=== PATIENT | female | born 2000 | race Caucasian/White ===

== ENCOUNTER 2018-10-16 09:36 | Outpatient (CLI) | payer MEDICAID ==
--- NOTE | 2018-10-16 11:04 | Non Stress Test Report ---
Non Stress Test Datetime Report Generated by CPN: 10/16/2018 11:04 DEMOGRAPHIC Test Number: 1 EGA NST: 38.4 INDICATION Indication for Study: Ordered by Provider Indication for Study (NST) Other: decels in office VITAL SIGNS Temperature - NST: 98.2 Pulse - NST: 90 RESP - NST: 16 NBPSYS NST: 126 NBPDIA NST: 83 MONITORING Monitor Explained: Monitor Explained; Test Explained; Patient Verbalized Understanding Time on Monitor: 10/16/2018 10:00 NST INTERVENTIONS NST Interventions: PO Hydration Physician Notified NST: A Murdock CNM BABY A: [id number] BABY A Movement : Present FHR Baseline : 135 Accelerations : 15X15 Decelerations : None Variability : Moderate 6-25bpm NST Review: Meets Criteria for Reactive NST NST Review and Verified By : Rebekah Brothers RN NST Results: Reactive NST REPORT Report Trigger: Send Report
== END 2018-10-16 11:00 | disposition home or self-care (01) ==
LOC: LC 09:36
PROVIDERS: ATTEND Student in an Organized Health Care Education/Training Program
PROC: 4A1HXCZ Monitoring of Products of Conception, Cardiac Rate, External Approach (ICD-10-PCS; principal; 2018-10-16)
DX: O36.8330 Maternal care for abnormalities of the fetal heart rate or rhythm, third trimester, not applicable or unspecified (principal); Z3A.38 38 weeks gestation of pregnancy
CPT/HCPCS: 59025

== ENCOUNTER 2018-10-20 23:25 | Inpatient (IN) | payer MEDICAID ==
[2018-10-20 23:56] LABS: APPEARANCE,URINE CLOUDY; BILIRUBIN,URINE NEGATIVE (NEGATIVE); COLOR,URINE YELLOW; GLUCOSE, URINE NEGATIVE (NEGATIVE); KETONES,URINE NEGATIVE (NEGATIVE); LEUKOCYTE ESTERASE,URINE MODERATE (NEGATIVE); NITRITE,URINE NEGATIVE (NEGATIVE); PROTEIN,URINE 30 mg/dL (NEGATIVE); URINE SPECIFIC GRAVITY 1.021; UROBILINOGEN,URINE NEGATIVE mg/dL (<2.0)
[2018-10-21 00:56] LABS: ABSOLUTE LYMPHOCYTES (AUTO) 1.9 10^3/uL (0.5-4.7); ABSOLUTE MONOCYTES (AUTO) 0.7 10^3/uL (0.1-1.4); ABSOLUTE NEUT (AUTO) 8.7 10^3/uL (1.7-8.2); BASOPHILS % (AUTO) 0.3 % (0-2); EOSINOPHILS % (AUTO) 0.3 % (0-6); HEMATOCRIT 33.6 % (36.0-47.0); HEMOGLOBIN 10.9 g/dL (12.0-15.5); LYMPHOCYTES % (AUTO) 16.9 % (13-45); MEAN CORPUSCULAR HEMOGLOBIN 23.8 pg (27.0-33.4); MEAN CORPUSCULAR HGB CONC 32.4 g/dL (32.0-36.0); MEAN CORPUSCULAR VOLUME 74 fl (80-97); MONOCYTES % (AUTO) 5.8 % (3-13); PLATELET COUNT 209 10^3/uL (150-450); RED BLOOD COUNT 4.57 10^6/uL (3.72-5.28); SEGMENTED NEUTROPHILS % (AUTO) 76.7 % (42-78); TOTAL CELLS COUNTED % (AUTO) 100 %; WHITE BLOOD COUNT 11.3 10^3/uL (4.0-10.5)
[2018-10-21 01:06] LABS: URINE AMPHETAMINES SCREEN NEGATIVE; URINE BARBITURATES SCREEN NEGATIVE; URINE BENZODIAZEPINES SCREEN NEGATIVE; URINE COCAINE SCREEN NEGATIVE; URINE MARIJUANA (THC) SCREEN NEGATIVE; URINE METHADONE SCREEN NEGATIVE; URINE PHENCYCLIDINE SCREEN NEGATIVE
[2018-10-21 01:17] LABS: ALANINE AMINOTRANSFERASE 20 U/L (9-52); ALBUMIN 3.4 g/dL (3.5-5.0); ALKALINE PHOSPHATASE 204 U/L (38-126); ANION GAP 8 (5-19); ASPARTATE AMINO TRANSFERASE 21 U/L (14-36); BILIRUBIN,DIRECT 0.2 mg/dL (0.0-0.4); BILIRUBIN,TOTAL 0.2 mg/dL (0.2-1.3); BLOOD UREA NITROGEN 14 mg/dL (7-20); CALCIUM 9.3 mg/dL (8.4-10.2); CARBON DIOXIDE 23 mmol/L (22-30); CHLORIDE 107 mmol/L (98-107); GLUCOSE 85 mg/dL (75-110); POTASSIUM 4.8 mmol/L (3.6-5.0); SODIUM 137.8 mmol/L (137-145); TOTAL PROTEIN 6.3 g/dL (6.3-8.2); URIC ACID 5.1 mg/dL (2.5-6.2)
[2018-10-21 01:22] LABS: UR PRO/CREAT RATIO RESULT 0.1 mg/mg (0.0-0.2); URINE PROTEIN 15.1 mg/dL (<12)
--- NOTE | 2018-10-21 02:27 | Admission Physical ---
Datetime Report Generated by CPN: 10/21/2018 02:27 CURRENT ADMISSION Chief Complaint: Uterine Contractions Admit Impression : Active Labor Admit Plan: Admit to Unit; Initiate Labor Protocol ALLERGIES Medication Allergies: Yes Medication Allergies: No Known Allergies (10/16/2018) OBSTETRICAL HISTORY EDC: 10/26/2018 00:00 : 1 Para: 0 Livin Gestational Diabetes: No Rh Sensitization: No Incompetent Cervix: No GURINDER: No Infertility: No ART Treatment: No Uterine Anomaly: No IUGR: No Hx Previous C/S: No Macrosomia: No Hx Loss/Stillborn: No PIH: No Hx : No Placenta Previa/Abruption: No Depression/PP Depression: No PTL/PROM: No Post Hemorrhage: No Current Procedures: Ultrasound; NST SEE RECORDS Alcohol: No Marijuana : No Cocaine: No Other Illicit Drugs: No Cigarettes: Former Smoker. [id number] MEDICAL HISTORY Diabetes: No Blood Transfusion: No Pulmonary Disease (Asthma, TB): No Breast Disease: No Hypertension: No Independent Film Maker Surgery: No Heart Disease: No Hosp/Surgery: No Autoimmune Disorder: No Anesthetic Complications: No Kidney Disease: No Abnormal Pap Smear: No Neuro/Epilepsy: No Psychiatric Disorders: No Other Medical Diseases: No Hepatitis/Liver Disease: No Significant Family History: No Varicosities/Phlebitis: No Trauma/Violence : No Thyroid Dysfunction: No INFECTIOUS HISTORY Gonorrhea: No Genital Herpes: No Chlamydia: No Tuberculosis: No Syphilis: No Hepatitis: No HIV/AIDS Exposure: No Rash or Viral Illness: No HPV: No PHYSICAL EXAM General: Normal HEENT: Normal Neurologic: Normal Thyroid: Normal Heart: Normal Lungs: Normal Breast: Deferred Back: Normal Abdomen: Normal Genitourinary Exam: Normal Extremities: Normal DTRs: Normal Pelvic Type: Adequate Vital Signs: Reviewed VAGINAL EXAM Dilatation: 2 Effacement: 60 Station: -2 MEMBRANES Pooling: Negative Membranes: Intact FETUS A EGA: 39.2 Monitoring: External US FHR- Baseline: 120 Variability: Moderate 6-25bpm Decelerations: None FHR Category: Category I Presentation: Vertex Admit Comment: Will admit because of the high pressures PLANS FOR LABOR AND DELIVERY Labor and Delivery: None Pain Management: None Feeding Preference: Breast Benefit of Breast Feed Discussed: Yes Circumcision: Yes INFORMED CONSENT Signature: with User ID: [email or web address]
[2018-10-21] MEDS ORDERED: RINGERS SOLUTION,LACTATED 1,000 ML IV PRN (02:28)
[2018-10-21] MEDS ORDERED: LIDOCAINE 1% INJ-PF (10 MG/ML) 30 ML SDV ONE (04:44)
[2018-10-21] MEDS ORDERED: EPHEDRINE SULFATE INJ 50 MG/1 ML AMPULE ONE (04:44)
[2018-10-21] MEDS ORDERED: OXYTOCIN 10 UNIT/ML VIAL ONE (04:44)
[2018-10-21] MEDS ORDERED: FENTANYL/BUPIVACAINE/NS/PF 300 MCG/150 ML RTUINJ EPI ONE (04:44)
[2018-10-21] MEDS ORDERED: MISOPROSTOL 0.2 MG TABLET ONE (04:44)
[2018-10-21] MEDS ORDERED: OXYTOCIN/NORMAL SALINE 20 UNIT/1,000 ML RTUINJ ONE (04:44)
[2018-10-21] MEDS ORDERED: BUPIVACAINE HCL 0.25 % INJ/PF (2.5 MG/1 ML) 30 ML VIAL ONE (04:45)
[2018-10-21] MEDS ORDERED: OXYTOCIN/NORMAL SALINE 20 UNIT/1,000 ML RTUINJ IV PRN ×2 (09:21→19:01)
[2018-10-21] MEDS ORDERED: IBUPROFEN 800 MG TABLET ONE (15:02)
[2018-10-21] MEDS ORDERED: ACETAMINOPHEN WITH CODEINE #3 TABLET PO PRN ×2 (19:01)
[2018-10-21] MEDS ORDERED: DIPH/PERTUSS(ACELL)/TETANUS VAC/PF 0.5 ML SYR (>=10YO) IM PRN (19:01)
[2018-10-21] MEDS ORDERED: DIBUCAINE 1% OINTMENT 56 GM TP PRN (19:01)
[2018-10-21] MEDS ORDERED: ZOLPIDEM TARTRATE 5 MG TABLET PO PRN (19:01)
[2018-10-21] MEDS ORDERED: MEASLES,MUMPS&RUBELLA VACC/PF 0.5 ML VIAL SUBCUT PRN (19:01)
--- NOTE | 2018-10-21 19:01 | Delivery Summary ---
Del Sum A-C Datetime Report Generated by CPN: 10/21/2018 19:01 DELIVERY PERSONNEL DELIVERY PERSONNEL: [id number] Delivery Doctor:: Ruby Duff CNM Labor and Delivery Nurse:: Pita Kelley RN Labor and Delivery Nurse:: Rebekah Brothers RN Nursery Nurse:: Chau BOTELLO RN AFTER 10 MIN Oral Communication Instructor/ACOUSTICAL LOGGING ENGINEER: Chitra Limon, HYDROELECTRIC MECHANIC MATERNAL INFORMATION Delivery Anesthesia: Epidural Medications After Delivery: Pitocin Bolus-Please Comment; Pitocin Drip 20 Units/1000ml NSS Meds After Delivery Comment: Pitocin 20 units in 1 L NS bolusing per order Delivery QBL: 9 Maternal Complications: None Provider Comments: SVDVM over intact perineum, AYLIN, ant shoulder delivered with gentle traction, followed by post shoulder and body. Infant vigorous, to mothers abd. Cord clamped x2 after 2 min, cut per FOB. Placenta delivered via hayward intact. Rt and Lt labial lacerations repaired with chromic. Apgars 9, 9. Mother and stable upon leaving the room. LABOR SUMMARY EDC: 10/26/2018 00:00 No. Babies in Womb: 1 Attempted: No Labor Anesthesia: Epidural LABOR INFORMATION Reason for Induction: Not Applicable Onset of Labor: 10/21/2018 02:00 Complete Dilatation: 10/21/2018 11:53 Oxytocin: Augmentation Group B Beta Strep: negative Antibiotics # of Doses: 0 Steroids Given: None Reason Steroids Not Administered: Not Applicable MEMBRANES Membranes Rupture Method: Artificial Rupture of Membranes: 10/21/2018 08:24 Length of Rupture (hr): 5.03 Amniotic Fluid Color: Clear Amniotic Fluid Amount: Small Amniotic Fluid Odor: Normal STAGES OF LABOR Stage 1 hr: 9 Stage 1 min: 53 Stage 2 hr: 1 Stage 2 min: 33 Stage 3 hr: 0 Stage 3 min: 10 Total Time in Labor hr: 11 Total Time in Labor min: 36 VAGINAL DELIVERY Episiotomy: None Laceration Extension #1: First Degree Other Laceration: RT _ LT LABIAL Laceration Repair: Yes Laceration Repair Note: 2.0 chromic used for repair under epidural anesthesia Sponge Count Correct: N/A Sharps Count Correct: N/A BABY A INFORMATION Infant Delivery Date/Time: 10/21/2018 13:26 Method of Delivery: Vaginal Born in Route : No : N/A Forceps: N/A Vacuum Extraction: N/A Shoulder Dystocia : No PRESENTATION/POSITION BABY A Presentation: Cephalic Cephalic Presentation: Vertex Vertex Position: Right Occipital Anterior Breech Presentation: N/A PLACENTA INFORMATION BABY A Placenta Delivery Time : 10/21/2018 13:36 Placenta Method of Delivery: Spontaneous Placenta Status: Delivered SCORES BABY A Heart Rate 1 min: >100 bpm Resp Effort 1 min: Good Cry Reflex Irritability 1 min: Cough or Sneeze or Pulls Away Muscle Tone 1 min: Active Motion Color 1 min: Body Kathleen, Extremities Blue Resuscitation Effort 1 min: Tactile Stimulation SCORE 1 MIN: 9 Heart Rate 5 min: >100 bpm Resp Effort 5 min: Good Cry Reflex Irritability 5 min: Cough or Sneeze or Pulls Away Muscle Tone 5 min: Active Motion Color 5 min: Body Kathleen, Extremities Blue Resuscitation Effort 5 min: Tactile Stimulation SCORE 5 MIN: 9 INFANT INFORMATION BABY A Gestational Age at Delivery: 39.2 Gestational Status: Full Term- 39- 40.6 Weeks Infant Outcome : Liveborn Condition : Stable Sex: Male IDENTIFICATION BABY A Infant Verification Date/Time: 10/21/2018 13:38 ID Band Number: [id number] Mother's Name Verified: Yes Infant RN Verifying Infant: BL NATHALIALUND, RN Additional Verifying Personnel: F LIMON, ST WEIGHT/LENGTH BABY A Infant Birthweight (gm): 3802 Weight (lb): 8 Weight (oz): 6 Length (in): 20.00 Length (cm): 50.80 CORD INFORMATION BABY A No. Cord Vessels: 3 Nuchal Cord : N/A Cord Blood Taken: Yes-For Eval (Mom's Blood Type - or O+) Infant Suction: None ASSESSMENT BABY A Infant Complications: Multiple Variable Decels Physical Findings at Delivery: Within Normal Limits Infant Respirations: Grunting Skin to Skin: Yes Hand Expansion Envelope Maker/ALS Called : No Care By: Humberto SIMMONS RN Transferred To: Remains with Mother BABY B INFORMATION : N/A SIGNATURES Assignment: Maira Mercedes MD Signature: with User ID: [email or web address] : with User ID: [email or web address] : I was personally available for consultation and serving as supervising physician for the MLP.
[2018-10-21] MEDS: IBUPROFEN 800 MG TABLET PO SCH (21:13)
[2018-10-21] MEDS: FERROUS SULFATE 325 MG TABLET PO SCH (21:13)
[2018-10-21] MEDS: DOCUSATE SODIUM 100 MG CAPSULE PO SCH (21:13)
[2018-10-22] MEDS: IBUPROFEN 800 MG TABLET PO SCH ×3 (06:23→22:22)
[2018-10-22 07:34] LABS: HEMATOCRIT 25.6 % (36.0-47.0); MEAN CORPUSCULAR HEMOGLOBIN 23.9 pg (27.0-33.4); MEAN CORPUSCULAR HGB CONC 32.8 g/dL (32.0-36.0); MEAN CORPUSCULAR VOLUME 73 fl (80-97); PLATELET COUNT 175 10^3/uL (150-450); RED BLOOD COUNT 3.51 10^6/uL (3.72-5.28); RED CELL DISTRIBUTION WIDTH 16.3 % (11.5-14.0); WHITE BLOOD COUNT 11.1 10^3/uL (4.0-10.5)
[2018-10-22 07:37] LABS: HEMOGLOBIN 8.4 g/dL (12.0-15.5)
[2018-10-22] MEDS: SENNOSIDES/DOCUSATE 8.6-50 MG 1 EACH TABLET PO SCH (09:47)
[2018-10-22] MEDS: DOCUSATE SODIUM 100 MG CAPSULE PO SCH ×2 (09:47→17:59)
[2018-10-22] MEDS: FERROUS SULFATE 325 MG TABLET PO SCH ×2 (09:47→17:59)
[2018-10-22] MEDS: PRENATAL VITAMIN W DHA CAPSULE PO SCH (09:47)
--- NOTE | 2018-10-22 12:24 | PDOC PROGRESS REPORT ---
Subjective-OB Progress Note for:: 10/22/18 Subjective: 18yo G1 now P1 s/p ppd1. Pt. ambulating and voiding without difficulty. Denies any concerns at this time Physical Exam (OB) Vital Signs: Temp Pulse Resp BP Pulse Ox 97.8 F 68 20 115/71 98 10/22/18 07:57 10/22/18 07:57 10/22/18 07:57 10/22/18 07:57 10/22/18 07:57 Intake & Output 10/21/18 10/22/18 10/23/18 06:59 06:59 06:59 Intake Total 300 200 Balance 300 200 Weight 93 kg - General General Appearance: Appears well - PIH/Pre-Eclampsia Clonus: Negative Headache: Absent Epigastric Pain: No Visual Changes: No - Episiotomy/Laceration Site Condition: Well Approximated - Lochia Lochia Amount: Scant < 10 ml Lochia Color: Rubra/Red - Abdomen Description: Soft Hernia Present: No Fundal Description: Firm, Midline Fundal Height: u/u - u/2 - Respiratory Respiratory Status: No respiratory distress - Extremities Upper extremity: Normal inspection Lower extremities: Normal inspection - Neurological Cognition: Normal Orientation: AAOx4 - Psychological Associated symptoms: Normal affect, Normal mood Objective-Diagnostic Laboratory: 10/22/18 07:04 10/21/18 00:47 10/22/18 10/22/18 07:04 07:04 WBC 11.1 H RBC 3.51 L Hgb 8.4 L D Hct 25.6 L MCV 73 L MCH 23.9 L MCHC 32.8 RDW 16.3 H Plt Count 175 Blood Type O NEGATIVE Assessment and Plan(PN) - Assessment and Plan (1) Anemia complicating , third trimester Is this a current diagnosis for this admission?: Yes Plan: Continue to monitor for s/s of decompensation, increase dietary iron and FeSO4 BID (2) Hypertension affecting Qualifiers: Trimester: third trimester Qualified Code(s): O16.3 - Unspecified maternal hypertension, third trimester Is this a current diagnosis for this admission?: Yes Plan: pt admitted and induced due to elevated bps. Normal bps since delivery. Continue to monitor for s/s of pre-e. (3) Rh negative status during Qualifiers: Trimester: unspecified trimester Qualified Code(s): O26.899 - Other specified related conditions, unspecified trimester; Z67.91 - Unspecified blood type, Rh negative Is this a current diagnosis for this admission?: Yes Plan: awaiting results to assess need for rhogam (4) Vaginal delivery Is this a current diagnosis for this admission?: Yes (5) Obstetric labial laceration, delivered, current hospitalization Is this a current diagnosis for this admission?: Yes Plan: Continue to monitor for s/s of infection - Time Spent with Patient Time with patient: Less than 15 minutes Medications reviewed and adjusted accordingly: Yes - Disposition Anticipated Discharge: Home Within: within 24 hours
[2018-10-22] MEDS: BENZOCAINE/MENTHOL AEROSOL SPRAY 56 ML TOP PRN (22:22)
[2018-10-23] MEDS: IBUPROFEN 800 MG TABLET PO SCH ×2 (05:45→14:27)
[2018-10-23] MEDS: FERROUS SULFATE 325 MG TABLET PO SCH (10:35)
[2018-10-23] MEDS: SENNOSIDES/DOCUSATE 8.6-50 MG 1 EACH TABLET PO SCH (10:35)
[2018-10-23] MEDS: PRENATAL VITAMIN W DHA CAPSULE PO SCH (10:35)
[2018-10-23] MEDS: DOCUSATE SODIUM 100 MG CAPSULE PO SCH (10:35)
--- NOTE | 2018-10-23 10:38 | PDOC DISCHARGE SUMMARY ---
Final Diagnosis Discharge Date: 10/23/18 - PP Day #2, doing well, Hx HTN in labor, fever at delivery, denies fever, chills or maliase since, pt is , Rh negative, pt did get Rhogam - Final Diagnosis (1) Anemia complicating , third trimester Is this a current diagnosis for this admission?: Yes (2) Hypertension affecting Is this a current diagnosis for this admission?: Yes (3) Obstetric labial laceration, delivered, current hospitalization Is this a current diagnosis for this admission?: Yes (4) Rh negative status during Is this a current diagnosis for this admission?: Yes (5) Vaginal delivery Is this a current diagnosis for this admission?: Yes Discharge Data - Discharge Medication Prescriptions: Ferrous Sulfate [Feosol 325 mg Tablet] 325 mg PO DAILY #30 tablet Ibuprofen [Motrin 800 mg Tablet] 800 mg PO Q8 #60 tablet Home Medications: 105/Iron/Folic AC/Dha [Vitatrue Combo Pack] 1 each PO DAILY 10/16/18 Ferrous Sulfate [Feosol 325 mg Tablet] 325 mg PO DAILY #30 tablet 10/23/18 Ibuprofen [Motrin 800 mg Tablet] 800 mg PO Q8 #60 tablet 10/23/18 Reason(s) for Admission: Onset of Labor, Other Procedures: Ultrasound Intrapartum Procedure(s): Spontaneous Vaginal Delivery Complication(s): Laceration-Labial Laceration-Degree: 1st - Diagnosis Test Laboratory: Temp Pulse Resp BP Pulse Ox 98.1 F 72 16 127/81 H 99 10/23/18 07:57 10/23/18 07:57 10/23/18 07:57 10/23/18 07:57 10/23/18 07:57 10/20/18 10/21/18 10/22/18 23:38 00:47 07:04 RBC 4.57 3.51 L Hgb 10.9 L 8.4 L D Hct 33.6 L 25.6 L Urine Opiates Screen NEGATIVE - Discharge information/Instructions Discharge Activity: Activity As Tolerated, No Lifting Over 10 Pounds, Pelvic Rest Discharge Diet: As Tolerated, Regular Disposition: HOME, SELF-CARE Follow up with: [facility] in: 1, Weeks - for a BP check
[2018-10-23 14:00] VITALS: BP 115/71
[2018-10-23] MEDS: BENZOCAINE/MENTHOL AEROSOL SPRAY 56 ML TOP PRN (14:19)
== END 2018-10-23 14:35 | disposition home or self-care (01) | DRG 807 ==
LOC: LC 23:25 → LR 10-21 02:27 → 2S 10-21 18:50
PROVIDERS: ADMIT Obstetrics & Gynecology; ATTEND Obstetrics & Gynecology
PROC: 10E0XZZ Delivery of Products of Conception, External Approach (ICD-10-PCS; principal; 2018-10-21)
PROC: 0HQ9XZZ Repair Perineum Skin, External Approach (ICD-10-PCS; 2018-10-21)
PROC: 10907ZC Drainage of Amniotic Fluid, Therapeutic from Products of Conception, Via Natural or Artificial Opening (ICD-10-PCS; 2018-10-21)
PROC: 3E0234Z Introduction of Serum, Toxoid and Vaccine into Muscle, Percutaneous Approach (ICD-10-PCS; 2018-10-22)
PROC: 3E0234Z Introduction of Serum, Toxoid and Vaccine into Muscle, Percutaneous Approach (ICD-10-PCS; 2018-10-23)
DX: O13.4 Gestational [pregnancy-induced] hypertension without significant proteinuria, complicating childbirth (principal); Z37.0 Single live birth; O76 Abnormality in fetal heart rate and rhythm complicating labor and delivery; O26.893 Other specified pregnancy related conditions, third trimester; Z67.41 Type O blood, Rh negative; O70.0 First degree perineal laceration during delivery; Z3A.39 39 weeks gestation of pregnancy; O99.02 Anemia complicating childbirth; D64.9 Anemia, unspecified; Z23 Encounter for immunization
CPT/HCPCS: 36415; 80053; 80307; 81005; 82570; 83615; 84156; 84550; 85025; 85027; 85461; 86592; 86850; 86900; 86901; 88307; 90715; J2590; J2790; J3010; J3490

== ENCOUNTER 2019-05-11 13:48 | Emergency (ER) | payer BC, MEDICAID ==
--- NOTE | 2019-05-11 14:18 | ER Document Report ---
ED Medical Screen (RME) - General Chief Complaint: OB Problem (<20wks) Stated Complaint: /STOMACH PAIN Time Seen by Provider: 05/11/19 14:07 Primary Care Provider: SARITA COTTER MD [Primary Care Provider] - Follow up as needed Mode of Arrival: Ambulatory Information source: Patient Notes: 18-year-old female presents emergency department with reports that she is approximately 6 to 8 weeks. LMP February. G2, P1. Complains of headache but reports she has headaches that come and go. She is taken Tylenol with relief of the headache. Also complains of abdominal pain with vomiting nausea denies vaginal discharge denies vaginal bleeding. Denies nausea at this time. [employer] TRAVEL OUTSIDE OF THE [place] IN LAST 30 DAYS: No - Related Data Allergies/Adverse Reactions: No Known Allergies Allergy (Verified 05/11/19 14:07) Physical Exam - Vital signs Vitals: Temp Pulse Resp BP Pulse Ox 98.5 F 82 16 131/82 H 100 05/11/19 13:55 05/11/19 13:55 05/11/19 13:55 05/11/19 13:55 05/11/19 13:55 Course - Vital Signs Vital signs: Temp Pulse Resp BP Pulse Ox 98.5 F 82 16 131/82 H 100 05/11/19 13:55 05/11/19 13:55 05/11/19 13:55 05/11/19 13:55 05/11/19 13:55 Doctor's Discharge - Discharge Referrals: SARITA COTTER MD [Primary Care Provider] - Follow up as needed
[2019-05-11 15:03] LABS: ABSOLUTE BASOPHILS # (AUTO) 0.1 10^3/uL (0.0-0.2); ABSOLUTE LYMPHOCYTES (AUTO) 1.9 10^3/uL (0.5-4.7); ABSOLUTE MONOCYTES (AUTO) 0.5 10^3/uL (0.1-1.4); ABSOLUTE NEUT (AUTO) 6.9 10^3/uL (1.7-8.2); EOSINOPHILS % (AUTO) 0.3 % (0-6); HEMATOCRIT 38.3 % (36.0-47.0); HEMOGLOBIN 12.7 g/dL (12.0-15.5); LYMPHOCYTES % (AUTO) 20.3 % (13-45); MEAN CORPUSCULAR HEMOGLOBIN 24.1 pg (27.0-33.4); MEAN CORPUSCULAR HGB CONC 33.2 g/dL (32.0-36.0); MEAN CORPUSCULAR VOLUME 73 fl (80-97); MONOCYTES % (AUTO) 5.2 % (3-13); PLATELET COUNT 240 10^3/uL (150-450); RED BLOOD COUNT 5.28 10^6/uL (3.72-5.28); RED CELL DISTRIBUTION WIDTH 17.4 % (11.5-14.0); SEGMENTED NEUTROPHILS % (AUTO) 73.2 % (42-78); TOTAL CELLS COUNTED % (AUTO) 100 %; WHITE BLOOD COUNT 9.4 10^3/uL (4.0-10.5)
--- NOTE | 2019-05-11 15:08 | RADIOLOGY REPORT (SQ) ---
EXAM DESCRIPTION: U/S OB TRANSVAGINAL W/O DOP COMPLETED DATE/TIME: 05/11/2019 2:42 pm REASON FOR STUDY: preg abd pain COMPARISON: None. TECHNIQUE: Transvaginal static and realtime grayscale images acquired of the pelvis. Additional yvette cted spectral and color Doppler images recorded. All images stored on PACs. bHCG: Not available. CLINICAL DATES: 7 week 0 day LIMITATIONS: None. FINDINGS: FETUS: Single Living intrauterine . ULTRASOUND EGA: 7 week 0 day ULTRASOUND AMY: 12/28/2019 EFW: Not applicable less than 20 weeks. CRL: 1.0 cm FHR: 137 beats per minute. SURVEY: Too early to assess. AMNIOTIC FLUID: Adequate amount. PLACENTA: Not yet developed due to early gestation. SUBCHORIONIC BLEED: None suggested. SIZE OF BLEED: Not applicable. UTERUS: No masses. No anomalies. CERVICAL LENGTH: 3.6 cm. Closed. RIGHT ADNEXA: Ovary not identified due to poor acoustical window. No adnexal free fluid. No adnexal masses. LEFT ADNEXA: Ovary not identified due to poor acoustical window. No adnexal free fluid. No adnexal masses. FREE FLUID: None. OTHER: No other significant finding. IMPRESSION: LIVING INTRAUTERINE . EGA 7 week 0 day. Trimester of : First trimester - 0 to 13 weeks. TECHNICAL DOCUMENTATION: JOB ID: [id number] [employer]- All Rights Reserved rev-09/14 Reading location - IP/workstation name: [email or web address]
[2019-05-11 15:20] LABS: ALBUMIN 4.6 g/dL (3.5-5.0); ALKALINE PHOSPHATASE 81 U/L (38-126); ANION GAP 15 (5-19); ASPARTATE AMINO TRANSFERASE 22 U/L (14-36); BILIRUBIN,DIRECT 0.3 mg/dL (0.0-0.4); BILIRUBIN,TOTAL 0.5 mg/dL (0.2-1.3); BLOOD UREA NITROGEN 9 mg/dL (7-20); CALCIUM 10.5 mg/dL (8.4-10.2); CARBON DIOXIDE 21 mmol/L (22-30); CHLORIDE 104 mmol/L (98-107); GLUCOSE 81 mg/dL (75-110); POTASSIUM 3.9 mmol/L (3.6-5.0); TOTAL PROTEIN 7.9 g/dL (6.3-8.2)
[2019-05-11] MEDS ORDERED: DIPHENHYDRAMINE HCL 50 MG/ML VIAL IV ONE (15:49)
[2019-05-11] MEDS ORDERED: NORMAL SALINE 1000 ML 1,000 ML IV ONE (15:49)
[2019-05-11] MEDS ORDERED: METOCLOPRAMIDE HCL INJ/PF 10 MG/2 ML SDV IV ONE (15:50)
[2019-05-11] MEDS ORDERED: MAG HYDROX/AL HYDROX/SIMETH SUSP 30 ML UDCUP PO ONE (15:51)
[2019-05-11] MEDS ORDERED: LIDOCAINE 2% VISCOUS SOLN 20 ML UDCUP PO ONE (15:51)
[2019-05-11 15:54] LABS: APPEARANCE,URINE CLOUDY; BILIRUBIN,URINE NEGATIVE (NEGATIVE); COLOR,URINE YELLOW; GLUCOSE, URINE NEGATIVE (NEGATIVE); KETONES,URINE NEGATIVE (NEGATIVE); LEUKOCYTE ESTERASE,URINE NEGATIVE (NEGATIVE); NITRITE,URINE NEGATIVE (NEGATIVE); PROTEIN,URINE 30 mg/dL (NEGATIVE)
--- NOTE | 2019-05-11 17:00 | ER Document Report ---
Entered by EVELYN HOFFMAN SCRIBE 05/11/19 1554 Acting as scribe for:SANDRA ACEVEDO MD ED GI/ - General Chief Complaint: Nausea/Vomiting Stated Complaint: /STOMACH PAIN Time Seen by Provider: 05/11/19 14:07 Primary Care Provider: SARITA COTTER MD [Primary Care Provider] - Follow up as needed Mode of Arrival: Ambulatory Information source: Patient Notes: This 27 year old female patient presents to the emergency department today complaints of upper abdominal pain described as a "hard lump" and feeling bloated for the last x1.5 weeks. Patient has had bloating for a while as well. Patient also mentions that she is about 7 weeks . Patient has had vomiting for the last x2-3 weeks. Patient denies diarrhea or lower abdominal pain. TRAVEL OUTSIDE OF THE [place] IN LAST 30 DAYS: No - Related Data Allergies/Adverse Reactions: No Known Allergies Allergy (Verified 05/11/19 14:07) Past Medical History - General Information source: Patient - Social History Smoking Status: Never Smoker Cigarette use (# per day): No Drug Abuse: Marijuana - multiple times a day Lives with: Family Family History: Reviewed & Not Pertinent Patient has suicidal ideation: No Patient has homicidal ideation: No Review of Systems - Review of Systems Constitutional: No symptoms reported EENT: No symptoms reported Cardiovascular: No symptoms reported Respiratory: No symptoms reported Gastrointestinal: See HPI, Abdominal pain, Nausea, Vomiting. denies: Diarrhea Genitourinary: No symptoms reported Female Genitourinary: See HPI, Musculoskeletal: No symptoms reported Skin: No symptoms reported Hematologic/Lymphatic: No symptoms reported Neurological/Psychological: No symptoms reported -: Yes All other systems reviewed and negative Physical Exam - Vital signs Vitals: Temp Pulse Resp BP Pulse Ox 98.5 F 82 16 131/82 H 100 05/11/19 13:55 05/11/19 13:55 05/11/19 13:55 05/11/19 13:55 05/11/19 13:55 Interpretation: Normal - General General appearance: Appears well, Alert - HEENT Head: Normocephalic, Atraumatic Eyes: Normal Pupils: PERRL - Respiratory Respiratory status: No respiratory distress Chest status: Nontender Breath sounds: Normal Chest palpation: Normal - Cardiovascular Rhythm: Regular Heart sounds: Normal auscultation Murmur: No - Abdominal Inspection: Obese Distension: No distension Bowel sounds: Normal Tenderness: Nontender Organomegaly: No organomegaly - Back Back: Normal, Nontender - Extremities General upper extremity: Normal inspection. No: Edema General lower extremity: Normal inspection. No: Edema - Neurological Neuro grossly intact: Yes Cognition: Normal Orientation: AAOx4 [place] Coma Scale Eye Opening: Spontaneous [place] Coma Scale Verbal: Oriented [place] Coma Scale Motor: Obeys Commands Jimmie Coma Scale Total: 15 Speech: Normal Motor strength normal: LUE, RUE, LLE, RLE Sensory: Normal - Psychological Associated symptoms: Normal affect, Normal mood - Skin Skin Temperature: Warm Skin Moisture: Dry Skin Color: Normal Course - Vital Signs Vital signs: Temp Pulse Resp BP Pulse Ox 98.5 F 82 16 131/82 H 100 05/11/19 13:55 05/11/19 13:55 05/11/19 13:55 05/11/19 13:55 05/11/19 13:55 - Laboratory Result Diagrams: 05/11/19 14:50 05/11/19 14:50 Laboratory results interpreted by me: 05/11/19 05/11/19 05/11/19 14:50 14:50 15:25 MCV 73 L MCH 24.1 L RDW 17.4 H Carbon Dioxide 21 L Calcium 10.5 H Beta HCG, Quant 72676.00 H Urine Protein 30 H Urine Urobilinogen 2.0 H - Diagnostic Test Radiology reviewed: Image reviewed, Reports reviewed - Transvaginal ultrasound shows a 7-week intrauterine with a heart rate of 137 Discharge - Discharge Clinical Impression: Hyperemesis gravidarum, with 7 completed weeks gestation GERD (gastroesophageal reflux disease) Qualifiers: Esophagitis presence: esophagitis presence not specified Qualified Code(s): K21.9 - Gastro-esophageal reflux disease without esophagitis Condition: Stable Disposition: HOME, SELF-CARE Additional Instructions: Hyperemesis Gravidarum Hyperemesis gravidarum is the medical term for severe vomiting during . We don't know exactly why it occurs, but it's a common problem. Dehydration can occur. This reduces blood flow to the placenta, decreasing the baby's nourishment. The baby will also become dehydrated. There can be harmful changes in blood sodium, potassium, or acid balance. Our goal is to correct, and prevent, dehydration. For severe cases, we give IV fluids. Antinausea medication will be prescribed. (Don't be concerned about " defects" -- the risk to you and your baby from the hyperemesis is the biggest problem. The antinausea medication is very safe at this stage of .) Call the doctor if you have vaginal bleeding, abdominal pain, severe lightheadedness or weakness, or other alarming symptoms. Reflux Disease (GERD) Gastro-Esophageal Reflux Disease (GERD) is caused by stomach acid refluxing back up into the esophagus. The valve at the end of the esophagus may be weak. This is common in persons with a hiatal hernia. In your case, the esophageal irritation discomfort is caused by vomiting up stomach acids. GERD symptoms can include indigestion, chest pain, heartburn, or food "sticking." Certain foods, alcohol, and aspirin can make GERD worse. Treatment depends on the severity. Usually, antacids or acid-suppressing medicines are used. When the esophagus is acutely inflamed, the physician will often prescribe membrane-protective drugs such as Carafate. Some patients benefit from medication such as Reglan that tightens the valve at the top of the stomach. Avoid those foods that bring on your symptoms. For many people, these foods are coffee, chocolate, onions, garlic, and carbonated drinks. Don't use alcohol, aspirin, caffeine, or tobacco. Don't eat late at night -- within 4 hours of bedtime. Don't over-eat. If necessary, elevate the head of your bed about 4 inches so that stomach acid will not roll up into your esophagus. Call the doctor if you develop severe chest pain, inability to swallow fluids, fever, or worsening symptoms. Take the Reglan as prescribed for nausea if needed. Drink antacids between meals and at bedtime. Take [id number] Pepcid twice daily for the next several days. Follow-up with [facility] next week for recheck if not impr oving. RETURN TO THE EMERGENCY ROOM IF ANY NEW OR WORSENING SYMPTOMS. Prescriptions: Metoclopramide HCl [Reglan 10 mg Tablet] 10 mg PO Q4 PRN #25 tablet PRN Reason: For Nausea/Vomiting Forms: Return to Work Referrals: SARITA COTTER MD [Primary Care Provider] - Follow up as needed Scribe Attestation: 05/11/19 17:47 I personally performed the services described in the documentation, reviewed and edited the documentation which was dictated to the scribe in my presence, and it accurately records my words and actions. I personally performed the services described in the documentation, reviewed and edited the documentation which was dictated to the scribe in my presence, and it accurately records my words and actions.
[2019-05-11 18:03] VITALS: BP 123/82
== END 2019-05-11 18:05 | disposition home or self-care (01) ==
LOC: ER 13:48
DX: O21.0 Mild hyperemesis gravidarum (principal); K21.9 Gastro-esophageal reflux disease without esophagitis; R10.13 Epigastric pain; R14.0 Abdominal distension (gaseous); Z3A.01 Less than 8 weeks gestation of pregnancy
CPT/HCPCS: 99284; 96361; 96374; 96375; 36415; 84702; 83690; 85025; 80053; 81001; 76817; J1200; J3490; J2765; J7030